=== PATIENT | female | born 1980 | race Two or more races ===

== ENCOUNTER 2025-06-26 13:43 | Emergency (ER) | payer MEDICAID, OTHER ==
[~2025-06-26] VITALS: Ht 162.6 cm; Wt 82.0 kg
[2025-06-26] VITALS (10 sets, daily range): BP systolic 116–148; BP diastolic 60–76; PULSE 80–94; RESP 15–20; TEMP 98.1–98.8; O2SAT 97–98
--- NOTE | 2025-06-26 14:00 | ED.PDOC ---
History of Present Illness HPI Comments 44 y/o obese F, with a history of chronic anemia of unknown etiology, presents with c/c of abnormal labs. Patient reports on receiving a call from her primary care physician's office and being advised to come to the ED for blood transfusion after being found with a Hgb of ~6 following most recent outpatient lab work. She states on, usually, receiving treatment for anemia via outpatient iron infusions but has not received any after, recently, moving to [facility] from [place], [place]. Patient's only complaint is mild fatigue. Vital signs were stable. Chief Complaint: Abnormal LAB's Time Seen by MD: 13:45 Reviewed Notes: Nurses Notes, Medications, Allergies Allergies: Coded Allergies: NO KNOWN ALLERGIES (Unverified , 06/26/25) Information Source: Patient Mode of Arrival: Ambulatory Severity: Moderate Timing: Hours Duration: Since onset Prehospital treatment: None Past Medical History PAST MEDICAL HISTORY: Anemia (unkown etiology) Surgical History: Denies all surgeries TAX COMPLIANCE OFFICER History: Denies all TAX COMPLIANCE OFFICER Hx Family History Family History: Unknown Social History Smoker: Non-Smoker Alcohol: Denies ETOH Use Drugs: Denies Drug Use Lives In: Home Constitutional: reports: fatigue; denies: chills, diaphoresis, fever, malaise, sweats, weakness, others EENTM: denies: blurred vision, double vision, ear bleeding, ear discharge, ear drainage, ear pain, ear ringing, eye pain, eye redness, hearing loss, mouth pain, mouth swelling, nasal discharge, nose bleeding, nose congestion, nose pain, photophobia, tearing, throat pain, throat swelling, voice changes, others Respiratory: denies: cough, hemoptysis, orthopnea, SOB at rest, shortness of breath, SOB with excertion, stridor, wheezing, others Cardiovascular: denies: chest pain, dizzy spells, diaphoresis, Dyspnea on exertion, edema, irregular heart beat, left arm pain, lightheadedness, palpitations, PND, syncope, others Gastrointestinal: denies: abdomen distended, abdominal pain, blood streaked bowels, constipated, diarrhea, dysphagia, difficulty swallowing, hematemesis, melena, nausea, poor appetite, poor fluid intake, rectal bleeding, rectal pain, vomiting, others Genitourinary: denies: abnormal vagina bleeding, burning, dyspareunia, dysuria, flank pain, frequency, hematuria, incontinence, pain, , vagina dischar ge, urgency, others Neurological: denies: dizziness, fainting, headache, left sided numbness, left sided weakness, numbness, paresthesia, pre-existing deficit, right sided numbness, right sided weakness, seizure, speech problems, tingling, tremors, weakness, others Musculoskeletal: denies: back pain, gout, joint pain, joint swelling, muscle pain, muscle stiffness, neck pain, others Integumetry: denies: bruises, change in color, change in hair/nails, dryness, laceration, lesions, lumps, rash, wounds, others Allergic/Immunocompromised: denies: Difficulty Healing, Frequent Infections, Hives, Itching, others Hematologic/Lymphatic: denies: anemia, blood clots, easy bleeding, easy bruising, swollen glands, others Endocrine: denies: excessive hunger, excessive sweating, excessive thirst, excessive urination, flushing, intolerance to cold, intolerance to heat, unexplained weight gain, unexplained weight loss, others Psychiatric: denies: anxiety, bipolar disorder, depression, hopeless, panic disorder, schizophrenia, sleepless, suicidal, others All Other Systems: Reviewed and Negative (Comprehensive systems review obtained and negative except for what is stated in the HPI) Physical Exam General Appearance: Mild Distress (Patient was in moderate distress due to some minimal anxiety related to her transfusion needs.), Obese HEENT: Normal ENT Inspection, Pharynx Normal, TMs Normal Neck: Full Range of Motion, Non-Tender, Normal, Normal Inspection Respiratory: Chest Non-Tender, Lungs Clear, No Accessory Muscle Use, No Respiratory Distress, Normal Breath Sounds Cardiovascular: No Edema, No JVD, No Murmur, No Gallop, Normal Peripheral Pulses, Regular Rate/Rhythm Breast Exam: Deferred Gastrointestinal: No Organomegaly, Non Tender, No Pulsatile Mass, Normal Bowel Sounds, Soft Genitalia: Deferred Pelvic: Deferred Rectal: Deferred Extremities: No calf tenderness, Normal inspection Neurologic: Alert Cerebellar Function: NOT DONE Reflexes: NOT DONE Skin: Dry, Normal Color, Warm Lymphatic: No Adenopathy Was a procedure done? Was a procedure done?: No Differential Dx Considerations may include: anemia of unknown etiology X-Ray, Labs, Meds, VS Vital Signs Date Time Temp Pulse Resp B/P (MAP) Pulse Ox O2 Delivery O2 Flow Rate FiO2 10/25/25 10:07 137/93 06/27/25 10:00 97 16 137/93 (108) 99 06/27/25 08:04 98 Room Air* 0 21 06/27/25 08:01 67 16 98 Room Air* 0 21 06/27/25 08:00 70 16 126/78 (94) 99 06/27/25 07:00 97.9 98 16 131/83 (99) 99 97.9 06/27/25 03:14 98.1 79 20 121/76 (91) 97 98.1 06/26/25 23:07 98.1 97 20 122/70 (87) 97 98.1 06/26/25 22:30 98.1 85 20 148/60 98.1 06/26/25 20:30 80 20 97 Room Air* 0 21 06/26/25 20:30 98.1 81 20 117/61 (79) 97 98.1 06/26/25 20:25 98.1 80 20 117/64 98.1 06/26/25 20:10 98.1 80 20 118/70 98.1 06/26/25 20:05 98.1 83 20 116/72 98.1 06/26/25 19:45 98.1 86 20 122/67 98.1 06/26/25 19:00 98.6 83 16 126/73 98.6 06/26/25 18:15 98.8 94 16 128/75 98.8 06/26/25 18:00 98.5 90 15 115/70 (85) 98 98.5 06/26/25 17:56 98.5 87 18 127/76 98.5 06/26/25 16:34 91 11 120/70 (87) 91 06/26/25 16:00 93 15 98 Room Air* 0 21 06/26/25 16:00 98.2 93 15 125/79 (94) 98 98.2 06/26/25 15:50 93 15 125/79 (94) 98 06/26/25 13:52 95 06/26/25 13:45 98.2 102 18 137/85 98 98.2 Lab Test 06/27/25 10:00 06/27/25 09:46 06/26/25 17:27 06/26/25 15:19 Range/Units White Blood Count 7.9 4.4-10.8 10^3/uL Red Blood Count 4.84 4.0-5.20 10^6/uL Hemoglobin 9.1 #L 12.2-16.2 g/dL Hematocrit 31.0 #L 36.0-46.0 % Mean Corpuscular Volume 64.1 #L 80.0-100.0 fL Mean Corpuscular Hemoglobin 18.9 L 28.0-32.0 pg Mean Corpuscular Hemoglobin Concent 29.4 L 32.0-36.0 g/dL Red Cell Distribution Width 27.2 H 11.8-14.3 % Platelet Count 335 140-450 10^3/uL Mean Platelet Volume 9.1 6.9-10.8 fL Neutrophils (%) (Auto) 68.8 37.0-80.0 % Lymphocytes (%) (Auto) 23.4 10.0-50.0 % Monocytes (%) (Auto) 5.8 0.0-12.0 % Eosinophils (%) (Auto) 1.1 0.0-7.0 % Basophils (%) (Auto) 0.9 0.0-2.0 % Neutrophils # (Auto) 5.4 1.6-8.6 10 ^3/uL Lymphocytes # (Auto) 1.9 0.4-5.4 10 ^3/uL Monocytes # (Auto) 0.5 0-1.3 10 ^3/uL Eosinophils # (Auto) 0.1 0-0.8 10 ^3/uL Basophils # (Auto) 0.1 0-0.2 10 ^3/uL Nucleated Red Blood Cells 0.3 % Sodium Level 142 136-145 mmol/L Potassium Level 3.9 3.5-5.1 mmol/L Chloride Level 108 H 98-107 mmol/L Carbon Dioxide Level 24 20-31 mmol/L Anion Gap 10 5-15 Blood Urea Nitrogen 12 9-23 mg/dL Creatinine 0.84 0.550-1.02 mg/dL Glomerular Filtration Rate Calc 87 >90 mL/min BUN/Creatinine Ratio 14.3 10.0-20.0 Serum Glucose 112 H 74-106 mg/dL Calcium Level 8.3 L 8.7-10.4 mg/dL POC Glucose 115 H 70-106 mg/dl Troponin I High Sensitivity 8 9 </=34 ng/L Test 06/26/25 14:06 Range/Units White Blood Count 9.5 4.4-10.8 10^3/uL Red Blood Count 4.41 4.0-5.20 10^6/uL Hemoglobin 6.9 *L 12.2-16.2 g/dL Hematocrit 24.9 L 36.0-46.0 % Mean Corpuscular Volume 56.5 L 80.0-100.0 fL Mean Corpuscular Hemoglobin 15.8 L 28.0-32.0 pg Mean Corpuscular Hemoglobin Concent 27.9 L 32.0-36.0 g/dL Red Cell Distribution Width 21.0 H 11.8-14.3 % Platelet Count 467 H 140-450 10^3/uL Mean Platelet Volume 8.5 6.9-10.8 fL Neutrophils (%) (Auto) 71.6 37.0-80.0 % Lymphocytes (%) (Auto) 18.5 10.0-50.0 % Monocytes (%) (Auto) 8.7 0.0-12.0 % Eosinophils (%) (Auto) 0.4 0.0-7.0 % Basophils (%) (Auto) 0.8 0.0-2.0 % Neutrophils # (Auto) 6.8 1.6-8.6 10 ^3/uL Lymphocytes # (Auto) 1.8 0.4-5.4 10 ^3/uL Monocytes # (Auto) 0.8 0-1.3 10 ^3/uL Eosinophils # (Auto) 0 0-0.8 10 ^3/uL Basophils # (Auto) 0.1 0-0.2 10 ^3/uL Nucleated Red Blood Cells 0.1 % Platelet Estimate Increased Hypochromasia (manual) Marked Poikilocytosis (manual) Slight Anisocytosis (manual) Slight Microcytosis Marked Stomatocytes Few Sodium Level 138 136-145 mmol/L Potassium Level 2.8 L 3.5-5.1 mmol/L Chloride Level 99 98-107 mmol/L Carbon Dioxide Level 29 20-31 mmol/L Anion Gap 10 5-15 Blood Urea Nitrogen 12 9-23 mg/dL Creatinine 1.04 H 0.550-1.02 mg/dL Glomerular Filtration Rate Calc 68 >90 mL/min BUN/Creatinine Ratio 11.5 10.0-20.0 Serum Glucose 139 H 74-106 mg/dL Lactic Acid Level 1.9 0.4-2.0 mmol/L Calcium Level 9.6 8.7-10.4 mg/dL Troponin I High Sensitivity 9 </=34 ng/L Current Medications Medications (Trade) Dose Ordered Sig/Jose Route Start Time Stop Time Status Last Admin Potassium Bicarbonate (Klor-Con/Ef) 25 meq ONCE ONCE PO 06/26/25 18:00 06/26/25 18:01 DC 06/26/25 18:46 Potassium Chloride 100 ml @ 50 mls/hr Q2H IV 06/26/25 18:00 06/26/25 21:59 DC 06/26/25 20:00 Hydrochlorothiazide (hydroCHLOROthiazide TABLET) 50 mg ONCE ONCE PO 06/27/25 09:45 06/27/25 09:46 DC 06/27/25 10:07 Empaglifozin (Jardiance) 25 mg DAILY PO 06/27/25 10:00 06/27/25 10:07 Patient alert. Vitals stable. Hemoglobin is low. Answering questions. Potassium is low. Was given potassium. Was given blood transfusion. No acute process. Explained to the patient. Was told to follow up with her primary care physician. Was told to come back if there is any problem. X-Ray, Labs, Meds, VS Comment All laboratories were evaluated by me personally. CBC revealed a hemoglobin of 6.9 and hematocrit of 24.9. Additional findings of mild hypokalemia was noted. Patient will receive a 2 unit blood transfusion as well as potassium supplementation. Procedural take several hours and therefore, patient will remain in the ED overnight to be discharge in the morning. Time of 1ST Reevaluation: 22:15 Reevaluation 1ST: Improved Consultation: PCP Patient Education/Counseling: Diagnosis, Treatment Family Education/Counseling: Diagnosis, Treatment, No Family Present SEPSIS Sepsis Screen Date sepsis recognized/suspect: Jun 26, 2025 Time Sepsis recognized/suspect: 1348 Recent Procedure: No On Antibiotic Therapy: No Respiratory Rate >20: No Heart Rate >90: Yes Temp<36 C (96.8 F) or >38.3 C: No SBP <90 or MAP <65 mmHG: No New Acute Mental Status Change: No Is the patient on CPAP, BIPAP,: No Physician Orders Obtain Consent For: (06/26/25 14:35) Obtain Consent For Anesthesia (06/26/25 14:35) Empagliflozin (Jardiance) (06/27/25 10:00) Vital Signs Date Time Temp Pulse Resp B/P (MAP) Pulse Ox O2 Delivery O2 Flow Rate FiO2 06/27/25 10:07 137/93 06/27/25 10:00 97 16 137/93 (108) 99 06/27/25 08:04 98 Room Air* 0 21 06/27/25 08:01 67 16 98 Room Air* 0 21 06/27/25 08:00 70 16 126/78 (94) 99 06/27/25 07:00 97.9 98 16 131/83 (99) 99 97.9 06/27/25 03:14 98.1 79 20 121/76 (91) 97 98.1 06/26/25 23:07 98.1 97 20 122/70 (87) 97 98.1 06/26/25 22:30 98.1 85 20 148/60 98.1 06/26/25 20:30 80 20 97 Room Air* 0 21 06/26/25 20:30 98.1 81 20 117/61 (79) 97 98.1 06/26/25 20:25 98.1 80 20 117/64 98.1 06/26/25 20:10 98.1 80 20 118/70 98.1 06/26/25 20:05 98.1 83 20 116/72 98.1 06/26/25 19:45 98.1 86 20 122/67 98.1 06/26/25 19:00 98.6 83 16 126/73 98.6 06/26/25 18:15 98.8 94 16 128/75 98.8 06/26/25 18:00 98.5 90 15 115/70 (85) 98 98.5 06/26/25 17:56 98.5 87 18 127/76 98.5 06/26/25 16:34 91 11 120/70 (87) 91 06/26/25 16:00 93 15 98 Room Air* 0 21 06/26/25 16:00 98.2 93 15 125/79 (94) 98 98.2 06/26/25 15:50 93 15 125/79 (94) 98 06/26/25 13:52 95 06/26/25 13:45 98.2 102 18 137/85 98 98.2 Laboratory Tests Test 06/26/25 14:06 06/27/25 10:00 Lactic Acid Level 1.9 mmol/L (0.4-2.0) White Blood Count 9.5 10^3/uL (4.4-10.8) 7.9 10^3/uL (4.4-10.8) Medications Medications Dose Ordered Sig/Jose Route Start Time Stop Time Status Last Admin Dose Admin Empaglifozin 25 mg DAILY PO 06/27/25 10:00 06/27/25 10:07 Hydrochlorothiazide 50 mg ONCE ONCE PO 06/27/25 09:45 06/27/25 09:46 DC 06/27/25 10:07 Departure 1 Departure Time of Disposition: 22:15 Impression: Primary Impression: Anemia Qualified Codes: D64.9 - Anemia, unspecified Additional Impression: Hypokalemia Disposition: HOME / SELF CARE / HOMELESS Condition: Stable Additional Instructions: Advised patient maintain follow up appointments with her primary care provider. 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 Discharged With: Self, Friend Critical Care Note Critical Care Time?: No Stability Stability form required: No Heart Score Heart Score: Heart Score Response (Comments) Value History N/A 0 EKG N/A 0 Age N/A 0 Risk Factors N/A 0 Troponin N/A 0 Total 0 I personally scribed for ERYN LALA PAC ([email or web address]) on 06/26/25 at 14:00. Electronically submitted by Eduin Solares ([email or web address]). ERYN LALA Jun 26, 2025 14:00 JEANNA SAMAYOA MD Jun 27, 2025 11:47
[2025-06-26 14:21] LABS: Hematocrit 24.9 % (36.0-46.0); Mean Corpuscular Hemoglobin 15.8 pg (28.0-32.0); Mean Corpuscular Volume 56.5 fL (80.0-100.0); Nucleated Red Blood Cells % 0.1 %
[2025-06-26 14:23] LABS: Hemoglobin 6.9 g/dL (12.2-16.2)
[2025-06-26 14:25] LABS: Chloride 99 mmol/L (98-107); Sodium 138 mmol/L (136-145)
[2025-06-26 14:26] LABS: Anion Gap 10 (5-15); Carbon Dioxide 29 mmol/L (20-31)
[2025-06-26 14:27] LABS: Calcium 9.6 mg/dL (8.7-10.4); Potassium 2.8 mmol/L (3.5-5.1)
[2025-06-26 14:31] LABS: BUN/Creatinine Ratio 11.5 (10.0-20.0); Blood Urea Nitrogen 12 mg/dL (9-23)
[2025-06-26 14:34] LABS: Glucose 139 mg/dL (74-106)
[2025-06-26 16:31] LABS: Anisocytosis Slight; Stomatocytes Few
--- NOTE | 2025-06-26 18:09 | ECG ---
[facility] Test Date: 2025-06-26 Test Time: 13:52:30 Pat Name: NANCY WHEELER Department: Room: Gender: F Janitor Caretaker: VONDA : 1980 Requested By: ERYN LALA Order Number: [id number] Reading MD: Cipriano Shaffer Measurements Intervals [place] Rate: 95 P: 34 OR: 168 QRS: -6 QRSD: 89 T: 57 QT: 422 QTc: 531 Interpretive Statements Sinus rhythm Low voltage, precordial leads LVH by voltage Anterior Q waves, possibly due to LVH Borderline T abnormalities, inferior leads Prolonged QT interval Electronically Signed On 06-29-2025 14:59:37 PDT by Cipriano Shaffer Please click the below link to view image of tracing.
[2025-06-26] MEDS: POTASSIUM EFFERVESENT TAB 25 MEQ PO ONE (18:46)
[2025-06-26] MEDS: POTASSIUM CHL 20MEQ/100ML 100 ML IV SCH (19:02)
[2025-06-27 07:00] VITALS: TEMP 97.9
[2025-06-27 08:01] VITALS: PULSE 67; RESP 16; O2SAT 98
[2025-06-27 10:00] VITALS: BP 137/93; PULSE 97; RESP 16; O2SAT 99
[2025-06-27] MEDS: EMPAGLIFLOZIN 10 MG TAB PO SCH (10:07)
[2025-06-27] MEDS: hydroCHLOROthiazide 25 MG TAB PO ONE (10:07)
[2025-06-27 10:20] LABS: Hemoglobin 9.1 g/dL (12.2-16.2)
[2025-06-27 10:23] LABS: Hematocrit 31.0 % (36.0-46.0); Mean Corpuscular Hemoglobin 18.9 pg (28.0-32.0); Mean Corpuscular Volume 64.1 fL (80.0-100.0); Nucleated Red Blood Cells % 0.3 %
[2025-06-27 10:30] LABS: Potassium 3.9 mmol/L (3.5-5.1); Sodium 142 mmol/L (136-145)
[2025-06-27 10:31] LABS: Anion Gap 10 (5-15); Carbon Dioxide 24 mmol/L (20-31)
[2025-06-27 10:36] LABS: BUN/Creatinine Ratio 14.3 (10.0-20.0); Blood Urea Nitrogen 12 mg/dL (9-23)
[2025-06-27 10:39] LABS: Calcium 8.3 mg/dL (8.7-10.4); Chloride 108 mmol/L (98-107); Glucose 112 mg/dL (74-106)
== END 2025-06-27 11:50 | disposition home or self-care (01) ==
LOC: ER 13:43
DX: D64.9 Anemia, unspecified (principal); E87.6 Hypokalemia; E66.9 Obesity, unspecified; Z68.31 Body mass index [BMI] 31.0-31.9, adult
CPT/HCPCS: 36415; 36430; 80048; 82947; 83605; 84484; 85025; 86850; 86900; 86901; 86920; 93005; 96365; 96366; 99285; J3480; P9016; 82962